=== PATIENT | female | born 1995 | race Two or more races ===

== ENCOUNTER 2023-11-29 18:20 | Inpatient (IN) | payer MEDICAID ==
[~2023-11-29] VITALS: Ht 157.5 cm; Wt 103.9 kg
[2023-11-29 19:21] LABS: Basophils # (auto) 0 10 ^3/uL (0-0.2); Basophils % (auto) 0.4 % (0.0-2.0); Eosinophils # (auto) 0.3 10 ^3/uL (0-0.8); Eosinophils % (auto) 3.5 % (0.0-7.0); Hematocrit 40.7 % (36.0-46.0); Hemoglobin 13.5 g/dL (12.2-16.2); Lymphocytes # (auto) 2.2 10 ^3/uL (0.4-5.4); Lymphocytes % (auto) 23.8 % (10.0-50.0); Mean Corpuscular Hemoglobin 31.6 pg (28.0-32.0); Mean Corpuscular Hgb Conc. 33.1 g/dL (32.0-36.0); Mean Corpuscular Volume 95.4 fL (80.0-100.0); Monocytes # (auto) 0.5 10 ^3/uL (0-1.3); Neutrophils # (auto) 6.3 10 ^3/uL (1.6-8.6); Neutrophils % (auto) 67.3 % (37.0-80.0); Nucleated Red Blood Cells % 0.1 %; Red Blood Cells 4.26 10^6/uL (4.0-5.20); Red Cell Distribution Width 13.2 % (11.8-14.3); White Blood Cell 9.4 10^3/uL (4.4-10.8)
[2023-11-29 19:34] LABS: Alanine Aminotransferase 24 U/L (7-40); Albumin 4.4 g/dL (3.2-4.8); Alkaline Phosphatase 82 U/L (46-116); Anion Gap 5 (5-15); Aspartate Aminotransferase 16 U/L (13-40); BUN/Creatinine Ratio 16.3 (10.0-20.0); Blood Urea Nitrogen 14 mg/dL (9-23); Carbon Dioxide 27 mmol/L (20-30); Chloride 105 mmol/L (98-107); Glucose 91 mg/dL (74-106); Potassium 4.2 mmol/L (3.5-5.1); Sodium 137 mmol/L (136-145)
[2023-11-29 19:35] LABS: Bilirubin, Total 0.3 mg/dL (0.2-1.0); Total Protein 6.8 g/dL (5.7-8.2)
[2023-11-29 19:46] LABS: Urine Bacteria FEW /hpf (None Seen); Urine Blood 1+ /uL (Negative); Urine Clarity Clear (Clear); Urine Color Yellow (Yellow); Urine Mucus FEW (None Seen); Urine Protein, UAD Negative (Negative); Urine Specific Gravity 1.022 (1.001-1.035); Urine Urobilinogen Normal (Negative); Urine WBC 3 /hpf (0 - 5); Urine pH 5.5 (5.0-8.0)
[2023-11-29] MEDS ORDERED: LIDOCAINE VISCOUS 2% 15ML UD PO ONE (20:15)
[2023-11-29] MEDS ORDERED: DONNATAL 5ml ORAL Elix (BELLADONNA ALK-PHENOBARB) PO ONE (20:15)
[2023-11-29] MEDS ORDERED: ONDANSETRON HCL 4 MG/2 ML VIAL IV PRN (20:15)
[2023-11-29] MEDS ORDERED: ACETAMINOPHEN 325 MG TAB PO PRN (20:15)
[2023-11-29] MEDS ORDERED: MAALOX PLUS or MAALOX 30 ML PO ONE (20:15)
[2023-11-29] MEDS ORDERED: LORazepam 0.5 MG TAB PO PRN (20:15)
[2023-11-29] MEDS ORDERED: HYDROcodone-ACET 5/325MG TAB PO PRN (20:15)
[2023-11-29] MEDS ORDERED: cefTRIAXone 1GM/50ML D5W 50 ML IV ONE (20:30)
[2023-11-29] MEDS: SODIUM CHLORIDE 0.9% 1,000 ML IV SCH (20:47)
[2023-11-30 04:10] VITALS: BP 104/62; PULSE 71; RESP 18; TEMP 98.9; O2SAT 95
[2023-11-30 04:24] LABS: Basophils # (auto) 0 10 ^3/uL (0-0.2); Basophils % (auto) 0.4 % (0.0-2.0); Eosinophils # (auto) 0.4 10 ^3/uL (0-0.8); Eosinophils % (auto) 4.6 % (0.0-7.0); Hematocrit 37.1 % (36.0-46.0); Hemoglobin 12.4 g/dL (12.2-16.2); Lymphocytes # (auto) 2.8 10 ^3/uL (0.4-5.4); Lymphocytes % (auto) 34.4 % (10.0-50.0); Mean Corpuscular Hemoglobin 31.9 pg (28.0-32.0); Mean Corpuscular Hgb Conc. 33.5 g/dL (32.0-36.0); Mean Corpuscular Volume 95.5 fL (80.0-100.0); Monocytes # (auto) 0.5 10 ^3/uL (0-1.3); Monocytes % (auto) 6.6 % (0.0-12.0); Neutrophils # (auto) 4.5 10 ^3/uL (1.6-8.6); Red Blood Cells 3.89 10^6/uL (4.0-5.20); White Blood Cell 8.2 10^3/uL (4.4-10.8)
[2023-11-30 04:35] LABS: Chloride 108 mmol/L (98-107); Potassium 3.7 mmol/L (3.5-5.1); Sodium 138 mmol/L (136-145)
[2023-11-30 04:36] LABS: Anion Gap 5 (5-15); Calcium 8.4 mg/dL (8.7-10.4); Carbon Dioxide 25 mmol/L (20-30)
[2023-11-30 04:41] LABS: BUN/Creatinine Ratio 12.9 (10.0-20.0); Blood Urea Nitrogen 8 mg/dL (9-23); Glucose 89 mg/dL (74-106)
[2023-11-30 05:00] VITALS: BP 104/62; PULSE 71; RESP 18; TEMP 98.9; O2SAT 100
[2023-11-30 08:42] VITALS: BP 113/66; PULSE 65; RESP 15; TEMP 98.7; O2SAT 97
[2023-11-30] MEDS ORDERED: PANTOPRAZOLE 40 MG/10 ML VIAL INJ IV SCH (10:00)
[2023-11-30] MEDS: SODIUM CHLORIDE 0.9% 1,000 ML IV SCH (12:55)
[2023-11-30 13:14] VITALS: BP 115/59; PULSE 62; RESP 15; TEMP 98.6; O2SAT 96
[2023-11-30] MEDS ORDERED: metroNIDAZOLE 500 MG TAB PO SCH (14:00)
[2023-11-30] MEDS ORDERED: CIPR500T4 PO (15:54)
[2023-11-30] MEDS ORDERED: DOCUSATE SOD 100 MG CAP PO ONE (16:30)
[2023-11-30 16:41] VITALS: BP 120/67; PULSE 82; RESP 15; TEMP 97.9; O2SAT 96
[2023-11-30 19:26] VITALS: TEMP 36.6
== END 2023-11-30 19:45 | disposition home or self-care (01) | DRG 244 ==
LOC: ER 18:20 → OVERFLOW 20:21 → EAST 20:21
PROVIDERS: ADMIT Hospitalist; ATTEND Nurse Practitioner Acute Care
DX: K57.33 Diverticulitis of large intestine without perforation or abscess with bleeding (principal); E66.9 Obesity, unspecified; K64.8 Other hemorrhoids; N39.0 Urinary tract infection, site not specified; Z80.0 Family history of malignant neoplasm of digestive organs; Z83.3 Family history of diabetes mellitus; Z68.41 Body mass index [BMI] 40.0-44.9, adult; Z82.3 Family history of stroke; Z82.49 Family history of ischemic heart disease and other diseases of the circulatory system
CPT/HCPCS: 36415; 74176; 80048; 80053; 81001; 82378; 84702; 85025; 86850; 86900; 86901; 87086; C9113; G0378

== ENCOUNTER 2024-07-18 15:34 | Emergency (ER) | payer MEDICAID ==
[~2024-07-18] VITALS: Ht 160 cm; Wt 103.0 kg
[~2024-07-18 15:34] MED LIST: CIPR500T4 PO
[2024-07-18] MEDS ORDERED: AZIT500T66 PO (17:38)
[2024-07-18] MEDS ORDERED: LIDO2SOL26 MT (17:38)
[2024-07-18 17:42] VITALS: BP 116/74; PULSE 98; RESP 16; TEMP 98.9; O2SAT 98
== END 2024-07-18 17:50 | disposition home or self-care (01) ==
LOC: ER 15:34
DX: J03.90 Acute tonsillitis, unspecified (principal); Z79.899 Other long term (current) drug therapy